=== PATIENT | female | born 1950 ===

== ENCOUNTER 2016-12-07 05:43 | Observation (INO) | payer SELFPAY ==
[2016-12-02 10:41] VITALS: BMI 33.3
[2016-12-07] MEDS ORDERED: Lactated Ringer's 1,000 ML IV ONE (06:59)
[2016-12-07] MEDS ORDERED: ePHEDrine 50 mg/ml Inj ONE (07:08)
[2016-12-07] MEDS ORDERED: Rocuronium 10 mg/ml (5 ml) ONE (07:08)
[2016-12-07] MEDS ORDERED: Propofol 10 mg/ml Inj (20 ML) ONE (07:08)
[2016-12-07] MEDS ORDERED: Midazolam 2 MG/2 ML VIAL ONE (07:08)
[2016-12-07] MEDS ORDERED: Succinylcholine 200 mg/10 ml Inj IV ONE (07:09)
[2016-12-07] MEDS ORDERED: Silver Nitrate Topical - Stick ONE (07:28)
[2016-12-07] MEDS ORDERED: Ferric Subsulfate Sol(60 mL) ONE (07:28)
[2016-12-07] MEDS ORDERED: Bupivacaine 0.5% Inj(30mL) ONE (07:28)
[2016-12-07] MEDS ORDERED: Strong Iodine Topical Sol. 5%-10% ONE (07:28)
[2016-12-07] MEDS ORDERED: Bupivacaine 0.25%-Epinephrine 1:200,000 (30 ml) Inj ONE (07:28)
[2016-12-07] MEDS ORDERED: SULFANILAMIDE (AVC) VAG CREAM VG ONE ×2 (07:29→09:59)
[2016-12-07] MEDS ORDERED: Bupivacaine 0.25%-Epinephrine 1:200,000 (30 ml) Inj IJ ONE ×2 (08:30)
[2016-12-07] MEDS ORDERED: Sevoflurane - Inhalation Anesthetic Liq (250 ml) ONE (09:04)
[2016-12-07] MEDS ORDERED: HEMOSTATIC MATRIX 10 ML DIS.NEEDLE TOP ONE ×2 (09:13→10:00)
[2016-12-07] MEDS ORDERED: Neostigmine Methylsulfate 2 MG/2 ML ML IV ONE (09:20)
[2016-12-07] MEDS ORDERED: Lactated Ringer's 1,000 ML IV SCH ×2 (10:42→10:45)
--- NOTE | 2016-12-07 10:42 | PCM.SURG1 ---
Surgeon's Initial Post Op Note - Surgeon's Notes Surgeon: timothy roberts md Plastics Plater: Rani [id number] Type of Anesthesia: General Endo, Local Pre-Operative Diagnosis: Urethral diverticulum. Rectocele. Urinary incontinence. Vaginal pelvic pain Operative Findings: large urethral diverticulum approx 2.5 cm in diameter midline urethral neck. Rectocele. normal bladder anatomy as per cystoscopy. CPT4: 48786. ICD9 599.2. Detailed operative report. This is a 66 years old [place] female with chronic pelvic pain, symptomatic rectocele with difficulty defecation, vaginal pain, dyspareunia, occasional dysuria, regular incontinence and severe urgency and Nocturia,, urinary dribbling, and chronic vaginal discharge and infections. Following a complete work up and imaging studies including a pelvic CT a diagnosis of urethral diverticulum was made. Patient had a period of conservative management with antibiotics with no improvement. Decision made to proceed with excision of diverticulum, posterior colporrhaphy. Patient understood the risks of the surgery including urinary retention, incontinence and pain as well as recurrent diverticulum and fistula formation. After general anesthesia is induced, place the patient in the lithotomy position. Legs placed in lithotomy position, careful attention placed to avoid hyper flexion and hyper rotation of lower extremities. Sterilely prepare and drape the lower abdomen and genitalia. An indwelling urinary catheter was placed. Prior to the diverticulectomy, urethrooscopy / cystoscopy was completed. Bladder anatomy appeared normal, both ureteral orifices were effluxing urine freely, the urethra appeared normal except for an small opening in the mid urethra communicating with the diverticulum. After infiltrating the anterior vaginal wall with local anesthetic solution of 0.25% Marcaine, a U- shaped incision was made with the scalpel. The anterior vaginal wall flap was mobilized to expose the diverticulum. Great care was taken to prevent premature violation of the periurethral fascia or the diverticulum. The periurethral fascia was transversely incise. Using sharp and blunt dissection, I developed the proximal and distal flaps of periurethral fascia and reflected them off the underlying diverticulum. I dissected the diverticulum circumferentially down to its urethral communication and excised it completely. Great hemostasis noted. I closed the urethral defect vertically without tension using interrupted 4-0 Monocryl suture incorporating both mucosal and muscular layers of the urethral wall. I transversely reapproximated the periurethral fascia with a 3-0 Vicryl suture constituting the second layer of closure to ensure that no space is left over the urethral repair. The third layer of closure was the vaginal wall, which was closed with a running 2- 0 Vicryl suture. The vaginal forchette was grasped with a pair of Suzanna clamps at 5 and 7 oclock positions. A V shaped mucosal wedge was excised from the forchette and perineum with a scalpel. A midline longitudinal incision was made with a scalpel, extending to the vaginal apex. Using mets scissors in a sharp dissection, the vaginal mucosa along the incision was undermined form the underlined rectovaginal fascia in a lateral direction bilaterally. The rectocele was dissected off the posterior vaginal wall. Multiple 2-0 Vicryl sutures were used to approximate the rectovaginal fascia, reducing the rectocele , and reducing the posterior vaginal wall defect. Similar suture material was used to re-approximate the vaginal mucosa in a continues locking fashion, after minimally trimming of the mucosa which was overlying the rectocele. Perineal body was reconstructed in a usual fashion with 2-0 Vicryl in an interrupted fashion. The skin over the perineal body was closed with a 3-0 Monocryl suture in a subcuticular fashion. Vaginal pack was inserted into the vagina. I placed an antibiotic-soaked vaginal pack and place and urethral catheters to sterile drainage. Flowseal was applied to the incision. To ascertain operative success the multiple layers were closed in meticulous fashion, multiple layers separately, with watertight closure and void overlapping suture lines. At the beginning and end of the procedure, a diagnostic cystoscopy was performed; the opening of the diverticula was noted at the end and was obliterated at the end cystoscopy. Bladder anatomy was normal otherwise with ureters, urethra and bladder wall normal appearing. Prior to incision the patient received antibiotics, prior to closure sponge lap and need le count were correct times 2. Pt. was taken to recovery room in stable condition. Post-Operative Diagnosis: Urethral diverticulum. Rectocele. Urinary incontinence. Vaginal pelvic pain Operation Performed: excision of urethral diverticulum. posterior colporhaphy. cystoscopy Specimen/Specimens Removed: urethral diverticulum wall Estimated Blood Loss: EBL {In ML}: 10 Blood Products Given: N/A Drains Used: No Drains Post-Op Condition: Good Date of Surgery/Procedure: 12/07/16 Time of Surgery/Procedure: 10:43
[2016-12-07] MEDS ORDERED: Oxycodone/Acetaminophen 5/325 mg Tab PO PRN (10:43)
[2016-12-07] MEDS: HYDROmorphone 0.5 mg/0.5 ml ISec IVP PRN ×4 (10:50→12:58)
[2016-12-07 18:31] VITALS: RESP 20
[2016-12-07] MEDS ORDERED: Pneumococcal 23-Valent Vaccine IM ONE (19:36)
[2016-12-08] MEDS: ceFAZolin 2 GM in Sodium Chloride 0.9% 100 ML IVPB SCH ×2 (00:33→09:09)
[2016-12-08 08:22] VITALS: BP 111/67; PULSE 83; TEMP 98.4; O2SAT 93
--- NOTE | 2016-12-08 09:51 | CP.PCM.PN ---
Subjective - Date & Time of Evaluation Date of Evaluation: 12/08/16 Time of Evaluation: 09:49 - Subjective Subjective: Progress note for Dr. Oshea: Patient seen resting comfortably at bedside accompanied by daughter. Vitals WNL , labs WNL. Packing removed. Patient to have grullon for 10 days, and have leg bag and training. Prescription for pain medication in chart and prescription for abx called into pharmacy. Patient to follow up with Dr. Oshea in office in 10 days. Objective - Vital Signs/Intake and Output Vital Signs (last 24 hours): Temp Pulse Resp BP Pulse Ox 98.4 F 83 20 111/67 93 L 12/08/16 08:21 12/08/16 08:21 12/08/16 08:21 12/08/16 08:21 12/08/16 08:21 - Medications Medications: Current Medications Hydromorphone HCl (Dilaudid) 0.5 mg IVP Q10M PRN PRN Reason: Pain, moderate (4-7) Last Admin: 12/07/16 12:58 Dose: 0.5 mg Hydromorphone HCl (Dilaudid) 2 mg IVP Q3H PRN PRN Reason: Pain, severe (8-10) Last Admin: 12/07/16 18:38 Dose: 2 mg Lactated Ringer's (Lactated Ringer's) 1,000 mls @ 125 mls/hr IV .Q8H VIDA Cefazolin Sodium 2 gm/ Sodium (Chloride) 100 mls @ 100 mls/hr IVPB Q8 VIDA Last Admin: 12/08/16 09:09 Dose: 100 mls/hr Lactated Ringer's (Lactated Ringer's) 1,000 mls @ 100 mls/hr IV .Q10H VIDA Morphine Sulfate (Morphine) 6 mg IVP Q4 PRN PRN Reason: Pain, severe (8-10) Last Admin: 12/08/16 01:09 Dose: 6 mg Ondansetron HCl (Zofran Inj) 4 mg IVP Q6 PRN PRN Reason: Nausea/Vomiting Oxycodone/Acetaminophen (Percocet 5/325 Mg Tab) 1 tab PO Q4H PRN PRN Reason: Pain, moderate (4-7) Stop: 12/10/16 10:44 Last Admin: 12/08/16 05:37 Dose: 1 tab
--- NOTE | 2016-12-08 10:07 | RAD ---
HISTORY: R/O FB COMPARISON: No prior. FINDINGS: BOWEL: Normal. No obstruction. No free air. BONES: Normal. OTHER FINDINGS: Multiple surgical wiring is noted overlying the pelvis.. IMPRESSION: Multiple surgical wiring is noted overlying the pelvis..
[2016-12-08 11:11] LABS: BASO # 0.1 K/uL (0.0-0.2); BASO % 0.5 % (0.0-2.0); EOS # 0.1 K/uL (0.0-0.7); EOS % 0.5 % (0.0-4.0); HEMOGLOBIN 12.5 g/dL (12.0-16.0); LYMPH # 2.3 K/uL (1.0-4.3); LYMPH % 20.2 % (20.0-40.0); MEAN CELL VOLUME 86.7 fl (81.0-99.0); MEAN CORPUSCULAR HEMOGLOBIN 28.5 pg (27.0-31.0); MEAN CORPUSCULAR HGB CONC 32.9 g/dL (33.0-37.0); MONO # 0.7 K/uL (0.0-0.8); MONO % 5.9 % (0.0-10.0); NEUT # 8.2 K/uL (1.8-7.0); NEUT % 72.9 % (50.0-75.0); NRBC % 0.1 % (0.0-0.0); RBC 4.38 Mil/uL (3.80-5.20); RED CELL DISTRIBUTION WIDTH 13.9 % (11.5-14.5); WHITE BLOOD COUNT 11.2 K/uL (4.8-10.8)
[2016-12-08 11:23] LABS: BLOOD UREA NITROGEN 10 mg/dl (7-17); CALCIUM 8.9 mg/dL (8.4-10.2); GFR AFRICAN-AMERICAN > 60; GFR NON-AFRICAN AMERICAN > 60
== END 2016-12-08 14:45 | disposition home or self-care (01) ==
LOC: H.OPSURG 05:43 → H.MEDSURG1 11:15
PROVIDERS: ADMIT Obstetrics & Gynecology; ATTEND Obstetrics & Gynecology
DX: N36.1 Urethral diverticulum (principal); N81.6 Rectocele; R32 Unspecified urinary incontinence
CPT/HCPCS: 36415; 53230; 57250; 74000; 80048; 82948; 85025; 88304; 88305; 96365; 96366; 96375; G0378; J0330; J0690; J1170; J2001; J2250; J2270; J2405; J2704; J2710; J3010; J7030; J7120